=== PATIENT | female | born 1990 | race Caucasian/White ===

== ENCOUNTER 2020-07-13 08:55 | Emergency (ER) | payer MEDICAID ==
--- NOTE | 2020-07-13 09:53 | EDM.PDOC ---
ED HPI GENERAL MEDICAL PROBLEM - General Chief Complaint: Lower Extremity Injury/Pain Stated Complaint: L FOOT INJURY Time Seen by Provider: 07/13/20 09:31 Source of Information: Reports: Patient, RN Notes Reviewed - History of Present Illness INITIAL COMMENTS - FREE TEXT/NARRATIVE: 30 yr old female twisted L ankle last evening. Pain and swelling is L mid foot, unable to bear wt last evening or today. No other pain or injury. Left Feet Pain Score (Numeric/FACES): 10 - Related Data Allergies Allergy/AdvReac Type Severity Reaction Status Date / Time No Known Allergies Allergy Verified 07/13/20 09:29 Home Meds: Home Meds . [No Known Home Meds] 07/13/20 [History] Past Medical History Psychiatric History: Reports: Depression, Other (See Below) Other Psychiatric History: nightmares - Infectious Disease History Infectious Disease History: Reports: None - Past Surgical History GI Surgical History: Reports: Cholecystectomy Female Surgical History: Reports: Section Social & Family History - Tobacco Use Tobacco Use Status *Q: Never Tobacco User Second Hand Smoke Exposure: No - Caffeine Use Caffeine Use: Reports: None - Recreational Drug Use Recreational Drug Use: No Review of Systems - Review of Systems Review Of Systems: See Below Respiratory: Reports: No Symptoms Cardiovascular: Reports: No Symptoms GI/Abdominal: Reports: No Symptoms Musculoskeletal: Reports: Foot Pain Neurological: Denies: Numbness, Tingling ED EXAM, GENERAL - Physical Exam Exam: See Below General Appearance: Alert, No Apparent Distress ( at rest) Head: Atraumatic Neck: Supple Respiratory/Chest: No Respiratory Distress Extremities: Other (swelling, bruising and tenderness L mid foot) Skin Exam: Warm, Dry Course - Vital Signs Last Recorded V/S: Last Vital Signs Temp 97 F 07/13/20 09:26 Pulse 110 H 07/13/20 09:26 Resp 16 07/13/20 09:26 BP 123/79 07/13/20 09:26 Pulse Ox 96 07/13/20 09:26 - Orders/Labs/Meds Orders: Active Orders 24 hr Category Date Time Status Foot Comp Min 3V Lt [CR] Routine Exams 07/13/20 09:35 Taken Durable Medical Equipment for Discharge [DME for Oth 07/13/20 09:50 Ordered Discharge] [COMM] Stat Durable Medical Equipment for Discharge [DME for Oth 07/13/20 09:50 Ordered Discharge] [COMM] Stat - Re-Assessments/Exams Free Text/Narrative Re-Assessment/Exam: 07/13/20 14:10. X rays no fx. Discharge instr. as documented. Departure - Departure Time of Disposition: 09:51 Disposition: Home, Self-Care 01 Condition: Fair Clinical Impression: Foot sprain Qualifiers: Encounter type: initial encounter Laterality: left Qualified Code(s): S93.602A - Unspecified sprain of left foot, initial encounter Left ankle sprain Qualifiers: Encounter type: initial encounter Involved ligament of ankle: unspecified ligament Qualified Code(s): S93.402A - Sprain of unspecified ligament of left ankle, initial encounter - Discharge Information Instructions: Foot Sprain, Elastic Bandage and RICE Therapy Referrals: PCP,None [Primary Care Provider] - Forms: ED Department Discharge Additional Instructions: Timo wrap. Crutches. Ice packs and elevation for swelling. Rest foot and ankle and foot as much as possible. Alternate ibuprofen and tylenol as needed for pain. Follow up clinic if not much better within 7 to 10 days as expected. Sepsis Event Note (ED) - Evaluation Sepsis Screening Result: No Definite Risk - Focused Exam Vital Signs: Vital Signs Temp Pulse Resp BP Pulse Ox 07/13/20 09:26 97 F 110 H 16 123/79 96 - My Orders Last 24 Hours: My Active Orders 07/13/20 09:35 Foot Comp Min 3V Lt [CR] Routine 07/13/20 09:50 Durable Medical Equipment for Discharge [DME for Discharge] [COMM] Stat Durable Medical Equipment for Discharge [DME for Discharge] [COMM] Stat - Assessment/Plan Last 24 Hours: My Active Orders 07/13/20 09:35 Foot Comp Min 3V Lt [CR] Routine 07/13/20 09:50 Durable Medical Equipment for Discharge [DME for Discharge] [COMM] Stat Durable Medical Equipment for Discharge [DME for Discharge] [COMM] Stat
--- NOTE | 2020-07-15 10:41 | CR ---
PROCEDURE INFORMATION: Exam: XR Left Tibia and Fibula Exam date and time: 07/13/2020 9:14 AM Age: 30 years old Clinical indication: Pain; Foot; Left; Patient HX: Fall this morning TECHNIQUE: Imaging protocol: XR Left tibia and fibula. Views: 2 views. COMPARISON: No relevant prior studies available. FINDINGS: Bones/joints: There is no evidence of acute fracture.There is no evidence of malalignment or dislocation. Soft tissues: Normal. IMPRESSION: There is no evidence of acute fracture.There is no evidence of malalignment or dislocation. Thank you for allowing us to participate in the care of your patient. Dictated and Authenticated by: Rhoda Colon MD 07/13/2020 11:01 AM Central Time ([place] & [place]) [place]
== END 2020-07-13 10:05 | disposition home or self-care (01) ==
LOC: JD.ED 08:55
DX: S93.402A Sprain of unspecified ligament of left ankle, initial encounter (principal); S93.602A Unspecified sprain of left foot, initial encounter; X50.1XXA Overexertion from prolonged static or awkward postures, initial encounter
CPT/HCPCS: 73630-26-LT; 73630-LT; 99282; 99283